=== PATIENT | male | born 1980 | race Caucasian/White ===

== ENCOUNTER 2017-10-06 14:17 | Emergency (ER) | payer MEDICAID ==
[~2017-10-06] VITALS: Ht 193 cm; Wt 65.8 kg
[~2017-10-06 14:17] MED LIST: ALBU90OI INH; BENZ100A PO; IBUP800 PO; Monodox100 MG PO; Norco 5-325 Ta1 EACH PO; SPACE CHAMBER1 EACH MC
[2017-10-06] MEDS ORDERED: Amoxicillin500 MG PO (14:57)
== END 2017-10-06 15:03 | disposition home or self-care (01) ==
LOC: ER 14:17
DX: K04.7 Periapical abscess without sinus (principal); F17.200 Nicotine dependence, unspecified, uncomplicated
CPT/HCPCS: 99282